=== PATIENT | male | born 1955 | race Caucasian/White ===

== ENCOUNTER → 2016-05-03 | Outpatient (CLI) | payer OTHER ==
[~2016-05-03] MED LIST: ADVA500A INH; ALBU0.08 NEB; ALBU6.7H INH; ASPI81CH CHEW; CLOP75TA PO; FURO40TA PO; LISI-515 PO; MECL-62 PO; MULT1TAB84 PO; NEBULIZER/ADULT1 KIT; NITR0.4S SL; PROT40TA PO; SIMV80TA PO; VENTAER INH
--- NOTE | 2016-05-03 16:46 | EC ---
Study Study Date:05/03/2016 STUDY CONCLUSIONS SUMMARY - Left ventricle: The cavity size was normal. Wall thickness was normal. Systolic function was moderately reduced. The estimated ejection fraction was in the range of 35% to 40%. Diffuse hypokinesis. - Mitral valve: Mild regurgitation. - Tricuspid valve: Mild regurgitation. If LV function is below 40, please consider prescribing an ACEI or ARB or document rationale for non-use. PROCEDURE DATA STUDY STATUS: Elective. Procedure: Transthoracic echocardiography. Image quality was good. Scanning was performed from the parasternal, apical, and subcostal acoustic windows. Study completion: The patient tolerated the procedure well. Transthoracic echocardiography. M-mode, complete 2D, complete spectral Doppler, and color Doppler. Patient status: Inpatient. CARDIAC ANATOMY LEFT VENTRICLE: The cavity size was normal. Wall thickness was normal. Systolic function was moderately reduced. The estimated ejection fraction was in the range of 35% to 40%. Diffuse hypokinesis. AORTIC VALVE: Trileaflet; normal thickness leaflets. Doppler: Transvalvular velocity was within the normal range. There was no stenosis. No regurgitation. AORTA: Aortic root: The aortic root was normal in size. MITRAL VALVE: Structurally normal valve. Doppler: Transvalvular velocity was within the normal range. There was no evidence for stenosis. Mild regurgitation. LEFT ATRIUM: The atrium was normal in size. RIGHT VENTRICLE: The cavity size was normal. Wall thickness was normal. PULMONIC VALVE: Doppler: Transvalvular velocity was within the normal range. There was no evidence for stenosis. No regurgitation. TRICUSPID VALVE: Structurally normal valve. Doppler: Transvalvular velocity was within the normal range. Mild regurgitation. PULMONARY ARTERY: The main pulmonary artery was normal-sized. Systolic pressure was within the normal range. RIGHT ATRIUM: The atrium was normal in size. PERICARDIUM: There was no pericardial effusion. SYSTEMIC VEINS: Inferior vena cava: The vessel was normal in size. BASIC MEASUREMENTS ADULT Normal Left ventricle LV internal dimension, ED, chordal level, *56.9 mm 43-52 PLAX LV internal dimension, ES, chordal level, *47.7 mm 23-38 PLAX Fractional shortening, chordal level, PLAX *16 % >29 LV posterior wall thickness, ED 14 mm IVS/LVPW ratio, ED *1.58 <1.3 Ventricular septum Septal thickness, ED 22.1 mm Aortic valve Leaflet separation 22 mm 15-26 Right ventricle RV internal dimension, ED, PLAX *39.7 mm 19-38 BASIC MEASUREMENTS ADULT Normal Aortic valve Leaflet separation 22 mm 15-26 Aorta Root diameter, ED *40 mm 20-37 Left atrium Anterior-posterior dimension, ES 38 mm 19-40 LA/aortic root ratio 0.95 DOPPLER MEASUREMENTS ADULT Normal Main pulmonary artery Pressure, S 29 mm Hg =30 Tricuspid valve Regurgitant peak velocity 217 cm/s Peak RV-RA gradient, S 19 mm Hg Maximal regurgitant velocity 217 cm/s Systemic veins Estimated CVP 10 mm Hg Right ventricle RV pressure, S 29 mm Hg <30 LEGEND: Mean values are shown as u=mean value. Asterisk (*) saenz values outside specified normal range. Prepared and signed by Burt Harris [id number]
== END ==
LOC: HECH 08:00
PROVIDERS: ATTEND Family Medicine
DX: R06.09 Other forms of dyspnea (principal)
CPT/HCPCS: 93306

== ENCOUNTER → 2016-05-29 | Outpatient (CLI) | payer OTHER ==
[2016-05-29 13:49] LABS: BICARBONATE 22.8 MEQ/L (21.0-32.0)
== END ==
LOC: CLAB 13:12
PROVIDERS: ATTEND Nurse Practitioner Family
DX: I50.9 Heart failure, unspecified (principal); I10 Essential (primary) hypertension; R06.02 Shortness of breath
CPT/HCPCS: 36415; 80048; 83880

== ENCOUNTER → 2016-06-04 | Outpatient (CLI) | payer OTHER ==
[~2016-06-04] MED LIST changes: -ADVA500A INH; +IOHEXOL 350 MG/ML 10 ML VIAL (for RAD DIAG) IV ONE
--- NOTE | 2016-06-04 15:28 | RADRPT ---
EXAM DATE/TIME: 06/04/2016 14:42 [facility] COMPARISON: CT THORAX W/O CONTRAST, July 27, 2015, 12:27. INDICATIONS : Mass, pulmonary nodules IV CONTRAST: 95 cc Omnipaque 350 (iohexol) IV RADIATION DOSE: 9.59 CTDIvol (mGy) MEDICAL HISTORY : Chronic obstructive pulmonary disease. SURGICAL HISTORY : None. ENCOUNTER: Initial ACUITY: 1 day PAIN SCALE: 0/10 LOCATION: Chest TECHNIQUE: Volumetric scanning of the chest was performed. Using automated exposure control and adjustment of t he mA and/or kV according to patient size, radiation dose was kept as low as reasonably achievable to obtain optimal diagnostic quality images. FINDINGS: Again seen is the stable well circumscribed nodule in the right upper lobe. The left lung is clear. There is no axillary or mediastinal adenopathy appreciated. Minimal coronary artery calcifications are noted including the LAD. Portion of the liver and spleen identified are free of focal defects. CONCLUSION: Stable pulmonary nodule as described above. Repeat examination in six months is savannah gonzalez. Dustin Flores MD FACR on June 04, 2016 at 15:09 Board Certified Radiologist. This report was verified electronically.
== END ==
LOC: HRAD 12:18
PROVIDERS: ATTEND Family Medicine
DX: R91.1 Solitary pulmonary nodule (principal)
CPT/HCPCS: 71260; Q9967

== ENCOUNTER → 2016-06-14 | Outpatient (CLI) | payer OTHER ==
[~2016-06-14] MED LIST changes: -IOHEXOL 350 MG/ML 10 ML VIAL (for RAD DIAG) IV ONE
[2016-06-14 12:27] LABS: PROTHROMBIN TIME - PATIENT 10.7 SEC (9.8-11.6)
== END ==
LOC: CLAB 11:50
PROVIDERS: ATTEND Nurse Practitioner Family
DX: R23.3 Spontaneous ecchymoses (principal)
CPT/HCPCS: 36415; 85049; 85610; 85730

== ENCOUNTER 2016-10-16 11:25 | Emergency (ER) | payer OTHER ==
[~2016-10-16] VITALS: Ht 185.4 cm; Wt 110.0 kg
[~2016-10-16 11:25] MED LIST changes: -ALBU6.7H INH; -MECL-62 PO
[2016-10-16 11:27] VITALS: BP 154/82; PULSE 72; RESP 20; TEMP 97.7; O2SAT 98
--- NOTE | 2016-10-16 11:51 | PD ---
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 States it is worst with head movement. Also feels fullness in bilateral ears. Denies any chest pain. States he always has sob and is at his baseline sob. Pt is saturating at 96% on RA. Denies any fever, cough, vomiting, abdominal pain, focal weakness or numbness. PFSH Past Medical History Hx Anticoagulant Therapy: Yes (CLOPIDOGREL) Asthma: No Autoimmune Disease: No Blood Disorders: No Anxiety: No Depression: No Heart Rhythm Problems: Yes (BRADYCARDIA) Cardiac Catheterization: Yes (WITH one STENT PLACEMENT 07/2014) Cardiovascular Problems: Yes (2 CO'S 1 STENT PLACED 2 YEARS AGO) High Cholesterol: Yes Chemotherapy: No Chest Pain: Yes Congestive Heart Failure: No COPD: No Diabetes: No Diminished Hearing: No Endocrine: No GERD: Yes Glaucoma: No Genitourinary: No Hiatal Hernia: No Hypertension: Yes Immune Disorder: No Musculoskeletal: No Neurologic: No Psychiatric: No Reproductive: No Respiratory: Yes (COPD) Immunizations Current: No Migraines: No Radiation Therapy: No Renal Failure: Yes (hx of recent ARF) Seizures: No Sickle Cell Disease: No Sleep Apnea: No Thyroid Disease: No Ulcer: No Past Surgical History Abdominal Surgery: Yes (LT groin HERNIA REPAIR) Cardiac Surgery: No Ear Surgery: No Endocrine Surgery: No Eye Surgery: No Genitourinary Surgery: No Gynecologic Surgery: No Oral Surgery: No Other Surgery: Yes Social History Alcohol Use: No Tobacco Use: No (quit 2 months ago smoked 2 ppd started at age of9) Substance Use: No Allergies-Medications (Allergen,Severity, Reaction): Coded Allergies: No Known Allergies (Verified , 10/16/16) Reported Meds & Prescriptions Reported Meds & Active Scripts Active Meclizine (Meclizine HCl) 25 Mg Tab 25 Mg PO BID PRN Ventolin Hfa 18 GM Inh (Albuterol Sulfate) 90 Mcg/Act Aer 2 Puff INH Q6H PRN Simvastatin 80 Mg Tab 80 Mg PO HS Clopidogrel (Clopidogrel Bisulfate) 75 Mg Tab 75 Mg PO DAILY Albuterol Neb (Albuterol Sulfate) 2.5 Mg/3 Ml Neb 2.5 Mg NEB Q4HR NEB PRN Nebulizer/Adult Mask (N/A) 1 Kit Kit 1 Kit .ROUTE DIRECTED Lisinopril 20 Mg Tab 20 Mg PO BID Furosemide 40 Mg Tab 40 Mg PO DAILY Protonix (Pantoprazole Sodium) 40 Mg Tab 40 Mg PO BID Reported Nitrostat SL (Nitroglycerin) 0.4 Mg Subl 0.4 Mg SL DIRECTED PRN 1 tablet under the tongue as needed for chest pain. Repeat every 5 minutes for a total of 3 DOSES or call 911 if NO relief. Multivitamin Adults (Multiple Vitamins W/ Minerals) 1 Tab 1 Tab PO DAILY Aspirin 81 Mg Chew 81 Mg CHEW DAILY Review of Systems Except as stated in HPI: all other systems reviewed are Neg Physical Exam Narrative GENERAL: 61yo M not in distress. SKIN: Focused skin assessment warm/dry. HEAD: Atraumatic. Normocephalic. EYES: Pupils equal and round. No scleral icterus. No injection or drainage. ENT: No nasal bleeding or discharge. Mucous membranes pink and moist. NECK: Trachea midline. No JVD. CARDIOVASCULAR: Regular rate and rhythm. No murmur appreciated. RESPIRATORY: No accessory muscle use. Clear to auscultation. Breath sounds equal bilaterally. GASTROINTESTINAL: Abdomen soft, non-tender, nondistended. No rebound tenderness or guarding. MUSCULOSKELETAL: No obvious deformities. No clubbing. No cyanosis. +Bilateral lower ext edema. NEUROLOGICAL: Awake and alert. No obvious cranial nerve deficits. Motor grossly within normal limits. Normal speech. PSYCHIATRIC: Appropriate mood and affect; insight and judgment normal. Data Data Last Documented VS Vital Signs Date Time Temp Pulse Resp B/P Pulse Ox O2 Delivery O2 Flow Rate FiO2 10/16/16 14:02 62 16 141/86 97 Nasal Cannula 2 10/16/16 11:27 97.7 Orders Basic Metabolic Panel (Bmp) (10/16/16 11:48) Complete Blood Count With Diff (10/16/16 11:48) Magnesium (Mg) (10/16/16 11:48) Ckmb (Isoenzyme) Profile (10/16/16 11:48) Troponin I (10/16/16 11:48) Act Partial Throm Time (Ptt) (10/16/16 11:48) Prothrombin Time / Inr (Pt) (10/16/16 11:48) Urinalysis - C+S If Indicated (10/16/16 11:48) Chest, Single Ap (10/16/16 11:48) Meclizine (Antivert) (10/16/16 12:00) Orthostatic Vital Signs (10/16/16 11:48) Sodium Chlorid 0.9% 500 Ml Inj (Ns 500 M (10/16/16 13:00) B-Type Natriuretic Peptide (10/16/16 13:13) Electrocardiogram (10/16/16 ) Labs Laboratory Tests Test 10/16/16 10/16/16 11:50 13:50 White Blood Count 8.4 TH/MM3 Red Blood Count 4.60 MIL/MM3 Hemoglobin 12.2 GM/DL Hematocrit 38.8 % Mean Corpuscular Volume 84.2 FL Mean Corpuscular Hemoglobin 26.6 PG Mean Corpuscular Hemoglobin 31.6 % Concent Red Cell Distribution Width 14.6 % Platelet Count 268 TH/MM3 Mean Platelet Volume 9.6 FL Neutrophils (%) (Auto) 65.8 % Lymphocytes (%) (Auto) 17.9 % Monocytes (%) (Auto) 11.9 % Eosinophils (%) (Auto) 1.8 % Basophils (%) (Auto) 2.6 % Neutrophils # (Auto) 5.5 TH/MM3 Lymphocytes # (Auto) 1.5 TH/MM3 Monocytes # (Auto) 1.0 TH/MM3 Eosinophils # (Auto) 0.2 TH/MM3 Basophils # (Auto) 0.2 TH/MM3 CBC Comment DIFF FINAL Differential Comment Prothrombin Time 10.9 SEC Prothromb Time International 1.0 RATIO Ratio Activated Partial 26.1 SEC Thromboplast Time Sodium Level 139 MEQ/L Potassium Level 4.5 MEQ/L Chloride Level 108 MEQ/L Carbon Dioxide Level 21.1 MEQ/L Anion Gap 10 MEQ/L Blood Urea Nitrogen 25 MG/DL Creatinine 1.38 MG/DL Estimat Glomerular Filtration 52 ML/MIN Rate Random Glucose 136 MG/DL Calcium Level 8.5 MG/DL Magnesium Level 2.2 MG/DL Total Creatine Kinase 89 U/L Troponin I LESS THAN 0.02 NG/ML B-Type Natriuretic Peptide 46 PG/ML Urine Color YELLOW Urine Turbidity CLEAR Urine pH 5.5 Urine Specific [place] 1.021 Urine Protein NEG mg/dL Urine Glucose (UA) NEG mg/dL Urine Ketones NEG mg/dL Urine Occult Blood NEG Urine Nitrite NEG Urine Bilirubin NEG Urine Urobilinogen LESS THAN 2.0 MG/DL Urine Leukocyte Esterase NEG Urine RBC LESS THAN 1 /hpf Urine WBC 1 /hpf Urine Squamous Epithelial <1 /hpf Cells Urine Mucus FEW /lpf Microscopic Urinalysis Comment CULT NOT INDICATED MDM Medical Decision Making Medical Screen Exam Complete: Yes Emergency Medical Condition: Yes Interpretation(s) EKG: NSR 66bpm. LBBB. Unchanged from prior. Differential Diagnosis Vertigo vs. ACS vs. electrolyte abnormality vs. dehydration Narrative Course 61yo M with symptoms that sound like vertigo. Pt given meclizine. Labs reviewed, no leukocytosis. H/H at baseline. BUN/creatinine mildly elevated at 25/1.38. Creatinine at baseline. Troponin negative. UA negative. BNP: 46. Pt reevaluated after meclizine and states he no longer feels dizzy. LBBB in EKG , unchanged from prior. Denies any chest pain. Pt ambulating without dizziness. Diagnosis Primary Impression: Dizziness Referrals: Serg Chand MD call for appointment Patient Instructions: General Instructions Departure Forms: Tests/Procedures Additional Instructions: Please follow up with your PMD in 1-2 days. May be refer to ENT for further work up. Return to the ED if symptoms worsen. Med/Other Pt SpecificInfo: Prescription(s) given Scripts Meclizine 25 Mg Tab25 Mg PO BID PRN (VERTIGO) #6 TAB Ref 0 Prov:Francia Shah DO 10/16/16 Disposition: 01 DISCHARGE HOME Condition: Stable Francia Shah DO Oct 16, 2016 11:51
[2016-10-16] MEDS ORDERED: MECLIZINE HCL 25 MG TAB PO ONE (12:00)
[2016-10-16 12:10] LABS: AUTOMATED NEUTROPHIL # 5.5 TH/MM3 (1.8-7.7); BASOPHIL # 0.2 TH/MM3 (0-0.2); BASOPHIL % 2.6 % (0.0-2.0); EOSINOPHIL # 0.2 TH/MM3 (0-0.4); EOSINOPHIL % 1.8 % (0.0-4.0); HEMATOCRIT 38.8 % (39.0-51.0); HEMO FLAGS DIFF FINAL; LYMPH % 17.9 % (9.0-44.0); LYMPHOCYTE # 1.5 TH/MM3 (1.0-4.8); MEAN CELL VOLUME 84.2 FL (80.0-100.0); MEAN CORPUSCULAR HEMOGLOBIN 26.6 PG (27.0-34.0); MEAN CORPUSCULAR HGB CONC 31.6 % (32.0-36.0); MONO % 11.9 % (0.0-8.0); NEUT % 65.8 % (16.0-70.0); PLATELET COUNT 268 TH/MM3 (150-450); RED CELL DISTRIBUTION WIDTH 14.6 % (11.6-17.2); WHITE BLOOD COUNT 8.4 TH/MM3 (4.0-11.0)
[2016-10-16 12:19] LABS: APTT (PATIENT) 26.1 SEC (24.3-30.1); PROTHROMBIN TIME - PATIENT 10.9 SEC (9.8-11.6)
[2016-10-16 12:28] LABS: ANION GAP 10 MEQ/L (5-15); BICARBONATE 21.1 MEQ/L (21.0-32.0); BLOOD UREA NITROGEN 25 MG/DL (7-18); CHLORIDE 108 MEQ/L (98-107); GLOMERULAR FILTRATION RATE 52 ML/MIN (>89); MAGNESIUM 2.2 MG/DL (1.5-2.5); POTASSIUM 4.5 MEQ/L (3.5-5.1); SODIUM (NA) 139 MEQ/L (136-145)
[2016-10-16 12:35] LABS: CREATINE KINASE 89 U/L (39-308)
--- NOTE | 2016-10-16 12:35 | RADRPT ---
EXAM DATE/TIME: 10/16/2016 11:49 [facility] COMPARISON: CT THORAX W/O CONTRAST, July 27, 2015, 12:27. CT THORAX W CONTRAST, June 04, 2016, 14:42. CHES T SINGLE AP, August 23, 2014, 18:26. INDICATIONS : Shortness of breath. MEDICAL HISTORY : Myocardial infarction. SURGICAL HISTORY : Coronary artery stent. ENCOUNTER: Initial ACUITY: 3 days PAIN SCORE: 0/10 LOCATION: Bilateral chest FINDINGS: The heart size is normal. The lungs are free of focal consolidation. There does appear to be a 0.9 cm nodule in the upper lateral right lung. This is seen on a prior CT of the chest. No effusion is seen . CONCLUSION: No acute disease. Right upper lobe pulmonary nodule. A followup CT examination in November of 2016 has already been recommended from the prior CT examination. Matthew Tovar MD on October 16, 2016 at 12:24 Board Certified Radiologist. This report was verified electronically.
[2016-10-16 12:39] VITALS: BP_SYST 135; BP_SYST 139; BP_SYST 146; BP_DIAS 71; BP_DIAS 79; BP_DIAS 88
[2016-10-16] MEDS ORDERED: SODIUM CHLORID 0.9% 500 ML INJ 500 ML IV ONE (13:00)
[2016-10-16 14:02] VITALS: BP 141/86; PULSE 62; RESP 16; O2SAT 97
[2016-10-16 14:15] LABS: BLOOD, URINE NEG (NEG); COMMENT (UR) CULT NOT INDICATED; CULTURE IF INDICATED CULT NOT INDICATED; GLUCOSE,URINE NEG (NEG); KETONE, URINE NEG (NEG); MUCUS URINE FEW /lpf (OCC); NITRITE,URINE NEG (NEG); PH, URINE 5.5 (5.0-8.5); SQUAMOUS EPITHELIAL CELL URINE <1 /hpf (0-5); URINE COLOR YELLOW (YELLW/STRAW)
[2016-10-16] MEDS ORDERED: MECL-62 PO (14:44)
[2016-10-16 15:19] VITALS: BP 147/76
--- NOTE | 2016-10-16 17:03 | EKG ---
Date Performed: 10/16/2016 Time Performed: 11:44:15 PTAGE: 61 years EKG: Sinus rhythm LEFT BUNDLE BRANCH BLOCK ABNORMAL ECG NO PREVIOUS TRACING DOCTOR: Stevie Jameson Interpretating Date/Time 10/16/2016 17:00:01
== END 2016-10-16 15:21 | disposition home or self-care (01) ==
LOC: NEPE 11:25
DX: R42 Dizziness and giddiness (principal); R94.31 Abnormal electrocardiogram [ECG] [EKG]; I12.9 Hypertensive chronic kidney disease with stage 1 through stage 4 chronic kidney disease, or unspecified chronic kidney disease; N18.9 Chronic kidney disease, unspecified; N17.9 Acute kidney failure, unspecified
CPT/HCPCS: 71010; 80048; 81001; 82550; 83735; 83880; 84484; 85025; 85610; 85730; 93005; 99285